=== PATIENT | female | born 1975 | race Caucasian/White ===

== ENCOUNTER → 2016-08-26 | Outpatient (CLI) | payer BC ==
[~2016-08-26] MED LIST: ALLEGRA30 MG PO; FLONASE NASAL S16 GM NS; IMITREX50 MG PO; MACRODANTIN50 MG/CA1 PO; NUVIGIL250 MG PO; PREDNISONE20 MG PO; RITALIN 20M20 MG/TAB PO; XYREM500 MG/ML PO
== END ==
LOC: BHSO 16:22
DX: F33.1 Major depressive disorder, recurrent, moderate (principal)

== ENCOUNTER → 2016-10-24 | Outpatient (CLI) | payer BC | LOC: BHSO 16:08 | DX: F33.41 Major depressive disorder, recurrent, in partial remission (principal) ==

== ENCOUNTER → 2017-05-13 | Outpatient (CLI) | payer BC | LOC: BHSO 13:12 | DX: F33.1 Major depressive disorder, recurrent, moderate (principal) ==

== ENCOUNTER → 2017-12-11 | Outpatient (CLI) | payer SELFPAY | LOC: BHSO 08:13 | DX: F33.41 Major depressive disorder, recurrent, in partial remission (principal) | CPT/HCPCS: G0463 ==

== ENCOUNTER → 2018-03-12 | Outpatient (CLI) | payer SELFPAY | LOC: BHSO 15:53 | DX: F41.1 Generalized anxiety disorder (principal) | CPT/HCPCS: G0463 ==

== ENCOUNTER → 2018-06-16 | Outpatient (CLI) | payer SELFPAY | LOC: BHSO 14:33 | DX: F33.41 Major depressive disorder, recurrent, in partial remission (principal) | CPT/HCPCS: G0463 ==

== ENCOUNTER → 2018-12-15 | Outpatient (CLI) | payer SELFPAY | LOC: BHSO 16:11 | DX: F41.1 Generalized anxiety disorder (principal) | CPT/HCPCS: G0463 ==

== ENCOUNTER → 2019-06-21 | Outpatient (CLI) | payer BC | LOC: BHSO 11:30 | DX: F33.42 Major depressive disorder, recurrent, in full remission (principal) | CPT/HCPCS: G0463 ==